=== PATIENT | female | born 1980 | race Caucasian/White ===

== ENCOUNTER → 2024-06-28 | Outpatient (CLI) | payer OTHER, SELFPAY ==
--- NOTE | 2024-06-28 13:04 | CT_ITS ---
PROCEDURE: SINUS/FACIAL BONE REASON FOR EXAM: SINUSITIS TECHNIQUE: CT of the paranasal sinuses without contrast. Coronal and Sagittal reconstruction series were provided. One or more dose reduction techniques were used (e.g., Automated exposure control, adjustment of the mA and/or kV according to patient size, use of iterative reconstruction technique). COMPARISON: None. FINDINGS: The paranasal sinuses are clear. The ostiomeatal complexes, frontal ethmoidal and sphenoid ethmoidal recesses appear clear. No sinus wall thickening or sclerosis. No air-fluid levels. Appearance of a small right maxillary sinus medial wall defect and lobular appearance to the mucosa of the right medial turbinate axial 68 may represent antral window with small nasal polyp not excluded, correlate with history. Left larger than right medial turbinate alisia bullosa. Old appearing fracture deformity of the nasal septum for example axial 67 with mild rightward bowing of the anterior septum and leftward displacement posterior septum. Infratemporal fossa fat appears preserved. Pterygopalatine foramen appear within limits. TMJs appear normally located. Bilateral fossa of Rosenmuller appears symmetric. Visualized mastoids appear clear. The middle and inner ears and internal auditory canals appear within limits. Orbits appear within limits. [place] artifact from dental amalgam. No periapical lucency identified. CT/Sinus/Facial Bone IMPRESSION: The paranasal sinuses are clear. The ostiomeatal complexes, frontal ethmoidal and sphenoid ethmoidal recesses appear clear. No sinus wall thickening or sclerosis. No air-fluid levels. Appearance of a small right maxillary sinus medial wall defect and lobular appe arance to the mucosa of the right medial turbinate axial 68 may represent antral window with small nasal polyp not excluded, corre late with history. Reading Location: [id number]
== END | disposition home or self-care (01) ==
PROVIDERS: PCP Family Medicine; Referring Provider Otolaryngology; Visit Provider Otolaryngology
DX: J32.8 Other chronic sinusitis (principal)
CPT/HCPCS: 70486